=== PATIENT | male | born 1975 | race Two or more races ===

== ENCOUNTER 2018-01-18 18:10 | Emergency (ER) | payer SELFPAY ==
[2018-01-18] MEDS ORDERED: SODIUM BICARBONATE 8.4% INJ 50ML SYRINGE ONE ×2 (18:19→18:25)
== END 2018-01-19 00:05 | disposition expired ==
LOC: ER 18:10
DX: I46.9 Cardiac arrest, cause unspecified (principal)
CPT/HCPCS: 31500; 92950; 93005